=== PATIENT | female | born 1940 | race African-American/Black ===

== ENCOUNTER 2016-05-01 11:03 | Inpatient (IN) | payer OTHER, BC ==
[~2016-05-01] VITALS: Ht 172.7 cm; Wt 79.3 kg
--- NOTE | ~2016-05-01 | EKG ---
[address] [place] [address] ELECTROCARDIOGRAM REPORT Name: KARIN MARTINEZ Room #: 170-12 ADM IN M.R.#: [id number] Admission: 05/01/16 Attend Phys: Annamarie Hazel MD Discharge: Date of : 44 Report #: [id number] THIS REPORT FOR: //name// [facility] ED Test Date: 2016-05-01 Test Time: 11:38:42 Pat Name: KARIN MARTINEZ Department: Room: 170 Gender: F Manager Field: RUTH ANN : 1940 Requested By: Anu Menendez Order Number: [id number] MD: Stepan Quintanilla Measurements Intervals [place] Rate: 72 P: 31 NC: 270 QRS: -43 QRSD: 162 T: -33 QT: 395 QTc: 433 Interpretive Statements Sinus rhythm Prolonged NC interval Right bundle branch block Possible Inferior infarct, age indeterminate No previous ECG available for comparison Electronically Signed On 05-01-2016 13:28:07 OSTOMY RN by Stepan Quintanilla [email or web address] <ELECTRONICALLY SIGNED> By: Stepan Quintanilla MD, [facility] 05/01/16 1328 1138 113 Stepan Quintanilla MD, [facility] /EPI
--- NOTE | ~2016-05-01 | 2DMMODE ---
[facility] [place] [place] [address] 2 D/M-MODE ECHOCARDIOGRAM Name: KARIN MARTINEZ Room #: 433-I ADM IN ..#: [id number] Admission: 05/01/16 Attend Phys: Annamarie Hazel Discharge: Date of : 44 Date of Service: 05/02/16 0824 Report #: [id number] THIS REPORT FOR: //name// Transthoracic Echocardiography Ordering physician: Brooklyn Ortega Referring physician: Brooklyn Ortega Malathi Recreation Aide: Shannon Damico Indications/History: Effusion. Hx: COPD, Afib. BP: 101 / HR: 86bpm Height: 68in Weight: 188.6lb 44 Study data: M-mode, complete 2D, complete spectral Doppler, and color Doppler. Location: Bedside. Routine. Image quality was adequate. The study was technically limited due to poor patient compliance and restricted patient mobility due to trach. Not all measurements taken. 2D measurements Normal Normal LVID ED 38.2mm 36-57 IVS ED 9.8mm 6-11 LVID ES 20.9mm 23-40 LVPW ED 9.6mm 6-11 LA volume index 16-28 AoRoot diam ED 34.1mm 21-37 LVOT diameter 20mm 18-23 Findings: Left ventricle: The cavity size was normal. Wall thickness was normal. Systolic function was hyperdynamic. The estimated ejection fraction was in the range of 70% to 75%. Wall motion was normal. Moderate LVOT gradient, likely related to hyperdynamic LV function. Right ventricle: Appears mildly dilated with normal function. Right atrium: The atrium appears mildly dilated. Left atrium: The atrium was mildly dilated. Aortic valve: Poorly visualized. Mildly calcified leaflets. Doppler: There was no stenosis. Trivial regurgitation. Peak velocity: 183.4cm/s (S). Peak [facility] [address] [place] [place] [address] 2 D/M-MODE ECHOCARDIOGRAM Name: KARIN MARTINEZ Room #: 433-I ADM IN M.Jessica.#: [id number] Admission: 05/01/16 Attend Phys: Annamarie Hazel Discharge: Date of : 44 Date of Service: 05/02/16 0824 Report #: [id number] gradient: 13.5mm Hg (S). Mitral valve: Mildly calcified annulus. Mildly thickened, mildly calcified leaflets . Doppler: There was no evidence for stenosis. Mild regurgitation. Peak E-wave velocity: 82.1cm/s. Peak gradient: 2.7mm Hg (D). Peak A-wave velocity: 120.4cm/s. Tricuspid valve: Structurally normal valve. Doppler: There was no evidence for stenosis. Mild-moderate regurgitation. Regurgitant peak velocity: 241.2cm/s. Peak RV-RA gradient: 23mm Hg (S). Pulmonic valve: Poorly visualized. Doppler: There was no evidence for stenosis. No regurgitation. Peak gradient: 11mm Hg (S). Pericardium: There was no pericardial effusion. Pleura: There was a left pleural effusion. Aorta: Aortic root: The aortic root was normal in size. Pulmonary artery: Systolic pressure was estimated to be 28mm Hg. Diastolic function: Doppler parameters are consistent with abnormal left ventricular relaxation (grade 1 diastolic dysfunction). Systemic veins: Inferior vena cava: The vessel was normal in size; the respirophasic diameter changes were in the normal range (= 50%). Conclusions 1. Left ventricle: Systolic function was hyperdynamic. The estimated ejection fraction was in the range of 70% to 75%. Wall motion was normal. Moderate LVOT gradient, likely related to hyperdynamic LV function. Doppler parameters are consistent with abnormal left ventricular relaxation (grade 1 diastolic dysfunction). 2. Right atrium: The atrium appears mildly dilated. 3. Aortic valve: Mildly calcified leaflets. There was no stenosis. Trivial regurgitation. 4. Mitral valve: Mildly calcified annulus. Mildly thickened, mildly calcified leaflets . There was no evidence for stenosis. Mild regurgitation. 5. Pericardium, extracardiac: There was no pericardial effusion. [facility] [place] [address] 2 D/M-MODE ECHOCARDIOGRAM Name: MARTINEZKARIN Room #: 433-I [facility] IN ..#: [id number] Admission: 05/01/16 Attend Phys: Annamarie Hazel Discharge: Date of : 44 Date of Service: 05/02/16823 Report #: [id number] 6. Pulmonary arteries: Systolic pressure was estimated to be 28mm Hg. <ELECTRONICALLY SIGNED> By: Stepan Quintanilla MD, [facility] 05/02/16938 3 8 Stepan Quintanilla MD, [facility] /crystal
--- NOTE | ~2016-05-01 | HC ---
[facility] [place] [address] CONSULTATION Name: JUANKARIN Room #: 445-P ADM IN M.R.#: [id number] Admission: 05/01/16 Attend Phys: Kaushik King MD Discharge: Date of : 44 Report #: [id number] THIS REPORT FOR: //name// CC: Annamarie Villarreal DATE OF SERVICE: 05/01/2016 REASON FOR CONSULTATION: Respiratory failure. IMPRESSION: 1. Acute respiratory failure. 2. Infiltrate with effusion, healthcare-associated pneumonia. 3. End-stage renal disease. 4. Chronic obstructive pulmonary disease. 5. Dysphagia. 6. Thoracic aortic aneurysm repair. 7. Diabetes. 8. History of deep venous thrombosis and embolism. 9. Obstructive sleep apnea. 10. Kidney transplant. 11. Depression. 12. Atrial fibrillation. 13. Debilitation. PLAN: 1. We will check venous Doppler, upper and lower. We will do ultrasound, chest on left and a tap if needed. 2. Continue tube feed. 3. Antibiotics per ID. 4. There is a question of tuberculosis without definite exposure and we will leave this up to ID, sputum has been sent, I believe. HISTORY OF PRESENT ILLNESS: A 76-year old initially at [facility] for thoracic aortic aneurysm repair, hospitalized in [place], required trach there and PEG; was sent to a [facility] where taken care of by [facility] for further rehabilitation, however, has had weakness, cough and there was a question of TB on the chest x-ray. The patient was transported to dialysis clinic without appropriate clothing per daughter and shortly after started developing a cough. The patient is somnolent today and has been off ventilators since I believe [facility] PRIOR MEDICATIONS: Included amiodarone, aspirin, digoxin, Marinol, citalopram, famotidine, mycophenolate, tacrolimus, Aranesp and DuoNeb. FAMILY HISTORY: Noncontributory. [facility] [address] [place] [address] CONSULTATION Name: KARIN MARTINEZ Room #: [facility] IN M.R.#: [id number] Admission: 05/01/16 Attend Phys: Kaushik King MD Discharge: Date of : 44 Report #: [id number] SOCIAL HISTORY: Positive tobacco in past. Negative significant ETOH. REVIEW OF SYSTEMS: As above. PHYSICAL EXAMINATION: VITAL SIGNS: Temperature not charted, pulse 69, respirations 12 and BP 128/53. EYES: Negative icterus. NECK: Negative JVD. LUNGS: Showed decreased breath sounds. HEART: Irregular. ABDOMEN: Bowel sounds present. EXTREMITIES: Showed positive edema. LABORATORY DATA: Lactate 0.9. BUN 32, creatinine 3.8 and potassium 5.2. White count 8.4, hemoglobin 10.7, platelets 267 and bands 2. RADIOLOGICAL DATA: Chest x-ray shows left infiltrate/effusion. We will follow closely with you. <ELECTRONICALLY SIGNED> By: Brooklyn Ortega MD 05/15/16 2234 [id number] Brooklyn Ortega MD /nt
--- NOTE | ~2016-05-01 | HC ---
[facility] [place] [address] CONSULTATION Name: KARIN MARTINEZ Room #: 445-P [facility] IN M.R.#: [id number] Admission: 05/01/16 Attend Phys: Kaushik King MD Discharge: Date of : 44 Report #: [id number] THIS REPORT FOR: //name// CC: Annamarie Villarreal DATE OF SERVICE: 05/06/2016 CHIEF COMPLAINT: Decubitus ulcers HISTORY OF PRESENT ILLNESS: This is a 76-year-old black female who presented to the emergency department to rule out tuberculosis. Upon admission to the hospital, the patient was found to have decubitus ulcers stage 2 on her bilateral buttocks and right thigh. I have been asked to assist in the care of the patient while she is here in the hospital. The patient herself is unable to give me any history. There is no family members here at this time. PAST MEDICAL HISTORY: According to the record, history of pneumonia, end-stage renal disease, COPD, type 2 diabetes, atrial fibrillation, hypertension, colitis and hemodialysis. CURRENT MEDICATIONS: Multiple, I reviewed the patient's medication list. DRUG ALLERGIES: None. SOCIAL HISTORY: The patient lives in a care facility. FAMILY HISTORY AND REVIEW OF SYSTEMS: Unobtainable because of the patient's medical condition. PHYSICAL EXAMINATION: VITAL SIGNS: Stable. The patient is afebrile. GENERAL: This is an alert and oriented x1 person, but not place or time, elderly black female who is in no acute distress. HEENT: Normocephalic, atraumatic. Mucous membranes are slightly dry. Pupils are round. Sclerae white. NECK: Supple, nontender without JVD. BACK: Nontender. LUNGS: Clear. HEART: Irregularly irregular with 2/6 systolic ejection murmur. ABDOMEN: Soft, otherwise nontender. EXTREMITIES: The patient moves all extremities without difficulty. There are no ulcerations noted to heels. There are no ulcerations noted to the foot or toes. Evaluation of the gluteal region reveals 2 superficial stage 2 decubitus ulcers in the superior aspect of each gluteal region as well as an ulceration down her right posterior thigh, which is also stage [address] superficial [address] [address] CONSULTATION Name: KARIN MARTINEZ Room #: 445-[facility] IN [facility].#: [id number] Admission: 05/01/16 Attend Phys: Kaushik King MD Discharge: Date of : 44 Report #: [id number]. NEUROLOGIC: Cranial nerves 2-12 grossly intact. Motor and sensory grossly intact. LABORATORY VALUES: White count 10.2, hemoglobin 9.4. Albumin is low at 2.4. IMPRESSION: 1. Bilateral stage 2 decubitus ulcers to supragluteal region present on admission. 2. Right posterior thigh gluteal ulcer stage 2, present on admission. 3. Diabetes mellitus. 4. Severe protein-calorie malnutrition with albumin of 2.4. PLAN: At this time, the patient is having a significant amount of loose stools, we have talked about ; however, the family is very much against this. We will try to keep her as clean as possible, we will use Silvadene cream for the sites, she does not appear these actually caused her much pain, we will have this done twice daily and with every stool. We will give the patient a low air loss mattress and make sure she turned every 2 hours further breakdown. We will also make sure we maximize the patient's protein supplementation per renal diet to aid in the healing. <ELECTRONICALLY SIGNED> By: Jarred Britt MD 05/17/16 0826 1355 1423 Jarred Britt MD /nt
--- NOTE | ~2016-05-01 | HC ---
[facility] [place] [place] [address] CONSULTATION Name: JUANKARIN Room #: 433-I ADM IN M.R.#: [id number] Admission: 05/01/16 Attend Phys: Annamarie Hazel MD Discharge: Date of : 44 Report #: [id number] THIS REPORT FOR: //name// CC: Annamarie Villarreal REASON FOR CONSULTATION: I was asked to evaluate concerning pneumonia and possible tuberculosis. HISTORY OF PRESENT ILLNESS: The patient is a 76-year-old renal transplant patient, who has had multiple issues following an aortic aneurysm repair. She has been institutionalized following her surgery that was performed in December in [facility]. She failed to wean from the ventilator and has required a tracheostomy and a PEG tube. She had acute renal failure and now is on dialysis via a right chest dialysis catheter. She has been in LTACs and back to [facility]. She remains on 2-drug immunosuppression with tacrolimus and Myfortic. Creatinine has stabilized around 3 range. She acutely presents with increased cough and bloody sputum. No documented fever. More short of breath. On presentation, she was afebrile and hemodynamically stable. She remains on a T-piece at 35%. The patient denies any chest pain. No nausea, vomiting or diarrhea. She denies any previous HIV history or tuberculosis exposure. I do not know her previous workup prior to her transplant, but would have expected tuberculosis screening at that time. She has been residing at [facility]. PAST MEDICAL HISTORY: Diabetes, hypertension, renal failure, ascending aortic aneurysm repair, DVT, atrial fibrillation and diverticulitis with a perforation status post colon surgery. ALLERGIES: None. MEDICATIONS: As noted on her MAR, which were reviewed including the Myfortic and tacrolimus. Now on vancomycin and Zosyn. She did receive a dose of Levaquin yesterday. FAMILY HISTORY: Noncontributory with no report of tuberculosis. SOCIAL HISTORY: No significant alcohol intake. She is a past smoker. REVIEW OF SYSTEMS: As noted above. PHYSICAL EXAMINATION: VITAL SIGNS: Afebrile, hemodynamically stable, alert and cooperative and pleasant, in no acute distress. She is on 35% T-piece. LUNGS: Coarse in the left posterior chest, mostly in the base. HEART: Regular. [facility] [address] [place] [address] CONSULTATION Name: KARIN MARTINEZ Room #: 433-I [facility] IN M.R.#: [id number] Admission: 05/01/16 Attend Phys: Annamarie Hazel MD Discharge: Date of : 44 Report #: [id number] ABDOMEN: Soft. PEG site was unremarkable. No masses or hepatosplenomegaly. Right chest dialysis catheter site was unremarkable. Left chest peripheral venous access unremarkable. EXTREMITIES: Unremarkable. LABORATORY STUDIES: Sodium 137, potassium 4.5, bicarbonate 27, creatinine 2.5, AST 10 and alkaline phosphatase 91. Albumin at 2.2. BNP 5180. INR 1.9. Hemoglobin 9.6, white count 6.2, platelet count 243,000, 70% neutrophils and 3% bands. MRSA screen pending. Procalcitonin level 0.6. ABG on FiO2 of 35%, pO2 of 82, pCO2 of 49 and pH 7.39. Sputum for AFB pending. Bacterial culture no growth in 24 hours. Blood cultures negative at 24 hours. Chest x-ray: Cardiomegaly with left sided effusion and atelectasis. Did not see any evidence of upper lobe disease. Previous chest x-ray on 02/23/2009 showed no acute process. IMPRESSION AND PLAN: A 76-year-old renal transplant patient with now acute renal failure on dialysis with respiratory failure and tracheostomy, all following an ascending aortic aneurysm repair performed at [facility] in February. Question was raised about tuberculosis. I highly doubt this considering her history and previous chest x-rays. For completeness, we will perform a PPD skin test. We will also screen sputum cultures for AFB. Await thoracentesis left chest, which I suspect is postoperative accumulation. Continue antibiotic coverage for nosocomial organisms pending culture results. <ELECTRONICALLY SIGNED> By: Ryan Basilio MD 05/03/16 0833 1215 1736 Ryan Basilio MD /nt
--- NOTE | ~2016-05-01 | EKG ---
[address] [address] ELECTROCARDIOGRAM REPORT Name: KARIN MARTINEZ Room #: 245-P ADM IN M.R.#: [id number] Admission: 05/01/16 Attend Phys: Wellington Calderón MD Discharge: Date of : 44 Report #: [id number] THIS REPORT FOR: //name// [facility] Test Date: 2016-05-10 Test Time: 18:00:33 Pat Name: KARIN MARTINEZ Department: Room: [facility] Gender: F Manager Business Information: : 1940 Requested By: Kaushik King Order Number: [id number] MD: Domenic Adam Measurements Intervals [place] Rate: 88 P: [place]: QRS: -85 QRSD: 158 T: 2 QT: 393 QTc: 476 Interpretive Statements Sinus rhythm Right bundle branch block Electronically Signed On 05-11-2016 8:05:14 COMMUNICATIONS CONTROLLER by Domenic Adam [email or web address] <ELECTRONICALLY SIGNED> By: Domenic Adam MD 05/11/16 0805 1800 MD GABRIEL Villa
--- NOTE | ~2016-05-01 | HC ---
[facility] [place] [address] CONSULTATION Name: JUANKARIN Room #: 433-I ADM IN M.R.#: [id number] Admission: 05/01/16 Attend Phys: Annamarie Hazel MD Discharge: Date of : 44 Report #: [id number] THIS REPORT FOR: //name// CC: [facility] DATE OF SERVICE: 05/01/2016 REASON FOR CONSULTATION: Renal failure requiring dialysis. HISTORY OF PRESENT ILLNESS: This is a 76-year-old female well known to our practice. She has had a very complex recent medical history. Most recently, this includes transferring to a local care center after having been in [facility]. She has just been at that Care Center now for about 4 days. She apparently was having some coughing and having some sputum which was blood-tinged, so she was sent to the Emergency Room. The patient actually is very awake and alert. She says she has been coughing, she is not having any chest pain. She is unaware of fevers or chills. She has a tracheostomy in place and she has been oxygenating fairly well. She does not know of previous hemoptysis. From a kidney standpoint, the patient had a long history of diabetic nephropathy. She ended up on dialysis and that was close to 10 years ago. She was on a peritoneal dialysis for some time and then she was on hemodialysis. In the year 2009, she ended up getting a kidney transplant and that kidney worked well for a very long period of time. In the fall of this year and it was either late in December or early January, she ended up presenting to [facility] and had an enlarging aortic aneurysm involving the ascending aorta, in the arch. She underwent surgery in [place] and obviously became very critically ill with that. She ended up chronically on the ventilator. She ended up with a tracheostomy as well as a PEG tube. During that time, the kidney continued to function fairly well. She was kept on her usual immunosuppressive medications. From there, she was transferred to an LTAC. Apparently, while there, there was a several day time course of not getting her immunosuppressive medication. She ended up developing acute kidney injury. From there, she was transferred apparently to [facility] and later to [facility] where she was cared for by part of our group. She was put back on her immunosuppressive medications, but the kidney has been very slow to regain function. Hence, she was put back on hemodialysis. She has now been dialyzing for the past couple of weeks via a tunneled right internal jugular vein catheter. She last dialyzed two days ago on 04/29/[address] [facility] state line dialysis unit associated with Suha Hyde, that was her one and only dialysis there. It went without problems. She is due for dialysis today. She has been put back on her immunosuppressive medications including tacrolimus and Myfortic. Her creatinine level has been running in the mid 3 range. She is [facility] [address] [place] [address] CONSULTATION Name: KARIN MARTINEZ Room #: 433-I ADM IN M.R.#: [id number] Admission: 05/01/16 Attend Phys: Annamarie Hazel MD Discharge: Date of : 44 Report #: [id number] making some urine, but has not shown further improvement in function. ADDITIONAL PAST MEDICAL HISTORY: Longstanding diabetes and hypertension. She has had the renal failure as noted above. She had the repair of the ascending aortic aneurysm as noted above. She also ended up during those lengthy hospitalizations with DVT and the left arm has been chronically anticoagulated since that time. She has intermittent atrial fibrillation, she had previous diverticulitis perforation and colon surgery. MEDICATIONS: On admission include: Tacrolimus 2.5 mg b.i.d, Myfortic 360 mg b.i.d; which are her two immunosuppressive medications. Amiodarone 200 mg daily, aspirin 81 mg daily, digoxin 0.125 mg every other day, dronabinol 2.5 mg b.i.d., Lexapro 10 mg daily, famotidine 20 mg daily, Aranesp 40 mcg every week, Humalog and multiple p.r.n. medications. ALLERGIES: No known medical allergies. FAMILY HISTORY: Noncontributory. SOCIAL HISTORY: She is accompanied by her daughter at this time, who still provides her with a lot of help. Again, she has been living in a local care center after being in multiple different recent hospitalizations. REVIEW OF SYSTEMS: Daughter says that the patient has actually been eating more; when she does eat, she is swallowing moderately well. When she does not, she gets a bolus of feedings into her PEG tube. Most of her medications she is able to swallow. She was having swallowing issues previously, but those have improved. She denies nausea or vomiting, intermittent recent diarrhea, although it seems to be better. Again, she is passing some urine, is occasionally incontinent. She has had the cough and sputum production, mild bloody sputum. She has the tracheostomy in place. She denies current pain. She has been dialyzing through the right internal jugular vein catheter dialysis while the other day she had a previous right upper arm fistula, which is now thrombosed. She denies other pain. No knowledge of fevers, chills or sweats. She has mild decrease in hearing acuity, no recent visual changes. PHYSICAL EXAMINATION: GENERAL: Elderly appearing female seen in the Emergency Room. She is awake and responsive, unable to communicate with both her daughter and myself. VITAL SIGNS: Blood pressure 132/57, heart rate 71, respiratory 9, oxygen saturation 100% on supplemental oxygen per trache shield. HEENT: Shows pupils are equal and reactive. Sclerae are nonicteric. Oral mucosa is moist. Tracheostomy is in place, no current drainage of blood. CHEST: Shows somewhat coarse breath sounds bilaterally, somewhat shallow. HEART: Has a regular rate and rhythm. ABDOMEN: Has active bowel sounds, it is soft, nontender at this time; generally [facility] [address] [place] [address] CONSULTATION Name: KARIN MARTINEZ Room #: 433-I ADM IN ..#: [id number] Admission: 05/01/16 Attend Phys: Annamarie Hazel MD Discharge: Date of : 44 Report #: [id number] nontender. EXTREMITIES: Show an old thrombosed fistula in her right arm. She has just trace peripheral edema. LABORATORY DATA: Sodium 132, potassium 5.2, chloride 98, bicarbonate 27, BUN 32, creatinine 3.8, glucose 110, calcium 9.2, white count 8.4, hemoglobin 10.7, hematocrit 34.5, platelets 267,000, normal differential on the white count. I reviewed her chest x-ray with some haziness, possible lower lobe infiltrates. ASSESSMENT: 1. End-stage renal disease. She is due for dialysis today. Potassium is mildly up. Volume is fairly good, we will dialyze her later on a potassium dialysate. I put in orders and talked to the dialysis nurse concerning that. 2. Kidney transplant. She remains on her immunosuppressive medications. We are still hoping we will see some recovery of her kidney, but this has been very slow to come around. Unfortunately, with her anticoagulation, we have not been able to get a kidney biopsy to see how much recoverable function there is and we will keep her on her Myfortic and tacrolimus at this time. 3. Recent repair of aortic aneurysm ascending in arch. 4. Chronic tracheostomy. Recent report of sputum with blood and infiltrate. I do not know where the tuberculosis concern came from. She has nothing to suggest that. She has been put on broad spectrum antibiotics. The quickest way to determine this will be to get the blood test looking for tuberculosis. 5. Longstanding diabetes. 6. Chronic swallowing issues. She has actually been doing better. We will keep her on by mouth if able. 7. Anemia of end-stage renal disease, chronically on erythropoietin supplementation. PLAN: 1. Dialysis later today. 2. Continue immunosuppressives. 3. We will look for further evidence of any recovery of renal function. 4. I have discussed this with Dr. Susy Arias of my group who is her usual trade embalmer. <ELECTRONICALLY SIGNED> By: Ryland Marie MD 05/02/16 0819 [id number] Ryland Marie MD /nt
--- NOTE | ~2016-05-01 | EKG ---
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1940 Requested By: Kaushik King Order Number: [id number] MD: Measurements Intervals [place] Rate: 88 P: ME: QRS: -85 QRSD: 158 T: 2 QT: 393 QTc: 476 Interpretive Statements Accelerated junctional rhythm Right bundle branch block Inferior infarct, old Compared to ECG 05/01/2016 11:38:42 Accelerated junctional rhythm now present Sinus rhythm no longer present First degree AV block no longer present Myocardial infarct finding still present [email or web address] By: [address] [facility] [place] [facility] [place] [facility] Ep[facility], /EPI
--- NOTE | ~2016-05-01 | P ---
[facility] [place] [address] PROCEDURE REPORT Name: KARIN MARTINEZ Room #: 445-P [facility] IN M.R.#: [id number] Admission: 05/01/16 Attend Phys: Kaushik King MD Discharge: 05/17/16 Date of : 44 Report #: [id number] THIS REPORT FOR: //name// CC: Henrik King TYPE OF REPORT: Bronchoscopy. INDICATION: Two episodes of arrest with [place] valve on secondary to mucous plugging. Post procedure, no endobronchial lesions seen. No hemoptysis seen. No significant granulation tissue seen. COMPLICATIONS: None. MEDICATIONS: Lidocaine and aerosol treatment. No sedation given. COMPLICATIONS: None. DESCRIPTION OF PROCEDURE: The patient was informed of risks and benefits as well as daughter. Bronchoscope was passed after lidocaine aerosol given. End of trach tube did not show any obstruction. Main andrew was sharp. No bleeding noted. Washes were done, minimal mucus seen. The patient tolerated well with some cough. Discussed with the patient and daughter afterwards. Await cultures. <ELECTRONICALLY SIGNED> By: Brooklyn Ortega MD 06/02/16 2225 [id number] Brooklyn Ortega MD /nt
[2016-05-01 11:05] VITALS: BP 102/55
[2016-05-01] MEDS ORDERED: TYLENOL325 MG PO (11:44)
[2016-05-01] MEDS ORDERED: PACERONE 200 M200 M1 PO (11:44)
[2016-05-01] MEDS ORDERED: ASPIR 8181 MG PO (11:45)
[2016-05-01] MEDS ORDERED: LANOXIN 0.120.125 M1 PO (11:46)
[2016-05-01 11:58] LABS: HEMATOCRIT 34.5 % (37.0-47.0); HEMOGLOBIN 10.7 gm/dL (12.0-15.0); MCH 27.6 pg (26.0-34.0); MCV 89.1 fL (80.0-100.0); RBC 3.87 mil/uL (4.20-5.00); RDW 18.5 % (10.5-14.5); WBC 8.4 thou/uL (4.0-11.0)
[2016-05-01 11:59] LABS: MANUAL DIFF YES
[2016-05-01 12:16] LABS: CALCIUM 9.2 mg/dL (8.5-10.1); CREATININE 3.8 mg/dL (0.6-1.3); POTASSIUM 5.2 mmol/L (3.5-5.1)
[2016-05-01 12:20] LABS: ABSOLUTE NEUTROPHILS 5.1 thou/uL (1.4-8.2); PLATELET COUNT 267 thou/uL (150-400); PLATELET ESTIMATE NORMAL; TOTAL CELL COUNT 100
[2016-05-01] MEDS ORDERED: MARINOL 2.5 MG2.5 M1 PO (12:22)
[2016-05-01] MEDS ORDERED: LEXAPRO 10 MG T10 M1 PO (12:23)
[2016-05-01] MEDS ORDERED: PEPCID20 MG PO (12:23)
[2016-05-01] MEDS ORDERED: HYDROCODONE-AP1 EAC6 PO (12:24)
[2016-05-01] MEDS ORDERED: MYCOPHENOLIC A180 MG PO (12:24)
[2016-05-01] MEDS ORDERED: TACROLIMUS0.5 MG PO (12:25)
[2016-05-01] MEDS ORDERED: ZOFRAN ODT4 MG PO (12:25)
[2016-05-01] MEDS ORDERED: TACROLIMUS1 MG PO (12:27)
[2016-05-01] MEDS ORDERED: ARANESP INJECTION (12:28)
[2016-05-01] MEDS ORDERED: DIPHENOXYLATE/A1 TA1 PO (12:30)
[2016-05-01] MEDS ORDERED: GLUCAGEN1 MG IM (12:31)
[2016-05-01] MEDS ORDERED: GLUCERNA237 M1 PO (12:32)
[2016-05-01] MEDS ORDERED: HUMALOG100 UNIT/1 SUBQ (12:33)
[2016-05-01] MEDS ORDERED: HYDROCORTISONE30 G9 TOP (12:34)
[2016-05-01] MEDS ORDERED: DUONEB 2.5-0.5 M3 ML INH (12:35)
[2016-05-01] MEDS ORDERED: SILVADENE20 GM TP (12:35)
[2016-05-01] MEDS ORDERED: METAMUCIL PAC1 UDPKT PO (12:36)
[2016-05-01 15:54] VITALS: BP 128/53
[2016-05-01 19:46] VITALS: BP 131/41
[2016-05-01 23:30] VITALS: BP 101/44
[2016-05-02 06:57] LABS: ABG COMMENT 35% TRACH MASK; ABG SAMPLE TYPE ARTERIAL; BE(vivo) 3.3 mmol/L (-2 to +3); HCO3 28.9 mmol/L (22.0-26.0); LACTATE 0.72 mmol/L (0.5-2.0); O2(CT) 14.2 mL/dL (15.0-23.0); O2Hb 94.5 % (92.0-98.0); PCO2 49.1 mmHg (35.0-45.0); PO2 82.7 mmHg (80.0-100.0); pH 7.388 (7.360-7.450); sO2 95.9 % (92.0-98.0); tCO2 30.4 mmol/L (24.0-30.0)
[2016-05-02 08:00] VITALS: BP 139/97
[2016-05-02 09:51] LABS: HEMATOCRIT 30.3 % (37.0-47.0); HEMOGLOBIN 9.6 gm/dL (12.0-15.0); MCH 27.9 pg (26.0-34.0); MCHC 31.6 % (28.0-37.0); MCV 88.3 fL (80.0-100.0); PLATELET COUNT 243 thou/uL (150-400); RBC 3.44 mil/uL (4.20-5.00); RDW 18.7 % (10.5-14.5); WBC 6.2 thou/uL (4.0-11.0)
[2016-05-02 09:56] LABS: MANUAL DIFF YES
[2016-05-02 10:04] LABS: APTT 37.7 Seconds (24.5-32.8); CALCIUM 8.2 mg/dL (8.5-10.1); INR 1.9; POTASSIUM 4.5 mmol/L (3.5-5.1); PROTIME 19.7 Seconds (9.3-11.4)
[2016-05-02 10:08] LABS: ALBUMIN 2.2 g/dL (3.4-5.0); MAGNESIUM 1.7 mg/dL (1.8-2.4); TOTAL BILIRUBIN 0.4 mg/dL (<0.1-1.0); TOTAL PROTEIN 5.2 g/dL (6.4-8.2)
[2016-05-02 10:14] LABS: CREATININE 2.5 mg/dL (0.6-1.3)
[2016-05-02 10:46] LABS: ABSOLUTE NEUTROPHILS 4.5 thou/uL (1.4-8.2); PLATELET ESTIMATE NORMAL; TOTAL CELL COUNT 100
[2016-05-02 10:47] LABS: ANISOCYTOSIS 2+
[2016-05-02 12:00] VITALS: BP 139/57
[2016-05-02 16:00] VITALS: BP 136/69
[2016-05-02 19:52] VITALS: BP 146/82
[2016-05-03 04:30] VITALS: BP 109/52
[2016-05-03 07:34] VITALS: BP 111/42
[2016-05-03 08:12] LABS: ALBUMIN 2.1 g/dL (3.4-5.0); CALCIUM 8.5 mg/dL (8.5-10.1); CREATININE 3.4 mg/dL (0.6-1.3); INR 1.7; PHOSPHORUS 3.3 mg/dL (2.5-4.9); POTASSIUM 4.2 mmol/L (3.5-5.1)
[2016-05-03 08:15] LABS: PROTIME 18.1 Seconds (9.3-11.4)
[2016-05-03 11:45] VITALS: BP 121/50
[2016-05-03 16:09] VITALS: BP 123/60
[2016-05-03 19:44] VITALS: BP 127/61
[2016-05-04 04:10] VITALS: BP 95/56
[2016-05-04 05:17] LABS: HEMATOCRIT 31.5 % (37.0-47.0); HEMOGLOBIN 9.7 gm/dL (12.0-15.0); MCH 27.7 pg (26.0-34.0); MCHC 30.8 % (28.0-37.0); MCV 90.1 fL (80.0-100.0); PLATELET COUNT 246 thou/uL (150-400); RDW 18.3 % (10.5-14.5); WBC 8.6 thou/uL (4.0-11.0)
[2016-05-04 05:26] LABS: MANUAL DIFF YES
[2016-05-04 05:41] LABS: CALCIUM 8.8 mg/dL (8.5-10.1); POTASSIUM 4.1 mmol/L (3.5-5.1)
[2016-05-04 05:48] LABS: CREATININE 2.3 mg/dL (0.6-1.3)
[2016-05-04 07:53] VITALS: BP 101/58
[2016-05-04 08:16] LABS: APTT 29.1 Seconds (24.5-32.8); INR 1.2; PROTIME 12.1 Seconds (9.3-11.4)
[2016-05-04 08:25] LABS: ABSOLUTE NEUTROPHILS 5.5 thou/uL (1.4-8.2); ANISOCYTOSIS 2+; MACROCYTES 2+; POIKILOCYTOSIS 1+; TOTAL CELL COUNT 100
[2016-05-04 08:26] LABS: MICROCYTES 1+
[2016-05-04 12:00] VITALS: BP 134/56
[2016-05-04 16:00] VITALS: BP 155/81
[2016-05-04 21:18] VITALS: BP 127/63
[2016-05-05 05:43] VITALS: BP 113/59
[2016-05-05 06:49] LABS: ABSOLUTE NEUTROPHILS 4.8 thou/uL (1.4-8.2); BASOPHILS 0.4 % (0.0-2.0); EOSINOPHILS 3.6 % (0.0-3.0); HEMATOCRIT 31.1 % (37.0-47.0); HEMOGLOBIN 9.5 gm/dL (12.0-15.0); LYMPHOCYTES 17.4 % (24.0-44.0); MCH 27.6 pg (26.0-34.0); MCHC 30.5 % (28.0-37.0); MCV 90.3 fL (80.0-100.0); MONOCYTES 11.8 % (1.0-8.0); PLATELET COUNT 234 thou/uL (150-400); POLYS 66.8 % (36.0-66.0); RBC 3.45 mil/uL (4.20-5.00); RDW 18.9 % (10.5-14.5); WBC 7.2 thou/uL (4.0-11.0)
[2016-05-05 06:54] LABS: MANUAL DIFF NO
[2016-05-05 07:00] LABS: CALCIUM 8.8 mg/dL (8.5-10.1); CREATININE 3.1 mg/dL (0.6-1.3); POTASSIUM 3.5 mmol/L (3.5-5.1)
[2016-05-05 08:00] VITALS: BP 124/62
[2016-05-05 12:00] VITALS: BP 112/64
[2016-05-05 17:28] VITALS: BP 112/49
[2016-05-05 19:26] VITALS: BP 105/46
[2016-05-06 04:29] VITALS: BP 104/80
[2016-05-06 06:37] LABS: ABSOLUTE NEUTROPHILS 7.3 thou/uL (1.4-8.2); BASOPHILS 0.3 % (0.0-2.0); EOSINOPHILS 2.1 % (0.0-3.0); HEMATOCRIT 30.7 % (37.0-47.0); HEMOGLOBIN 9.4 gm/dL (12.0-15.0); LYMPHOCYTES 15.5 % (24.0-44.0); MCH 27.6 pg (26.0-34.0); MCHC 30.4 % (28.0-37.0); MCV 90.6 fL (80.0-100.0); MONOCYTES 10.7 % (1.0-8.0); PLATELET COUNT 229 thou/uL (150-400); POLYS 71.4 % (36.0-66.0); RBC 3.39 mil/uL (4.20-5.00); RDW 18.3 % (10.5-14.5); WBC 10.2 thou/uL (4.0-11.0)
[2016-05-06 06:41] LABS: MANUAL DIFF NO
[2016-05-06 06:50] LABS: CALCIUM 9.2 mg/dL (8.5-10.1); CREATININE 3.6 mg/dL (0.6-1.3); POTASSIUM 3.9 mmol/L (3.5-5.1)
[2016-05-06 07:33] VITALS: BP 96/43
[2016-05-06 08:00] VITALS: BP 96/43
[2016-05-06 10:56] VITALS: BP 92/41
[2016-05-06 21:49] VITALS: BP 94/40
[2016-05-07 04:10] VITALS: BP 87/40
[2016-05-07 05:59] LABS: HEMATOCRIT 26.1 % (37.0-47.0); HEMOGLOBIN 8.3 gm/dL (12.0-15.0); MCH 27.9 pg (26.0-34.0); MCHC 31.6 % (28.0-37.0); MCV 88.2 fL (80.0-100.0); PLATELET COUNT 196 thou/uL (150-400); RBC 2.96 mil/uL (4.20-5.00); RDW 17.8 % (10.5-14.5); WBC 7.4 thou/uL (4.0-11.0)
[2016-05-07 06:13] LABS: MANUAL DIFF YES
[2016-05-07 06:43] LABS: ALBUMIN 2.4 g/dL (3.4-5.0); CALCIUM 8.4 mg/dL (8.5-10.1); CREATININE 2.5 mg/dL (0.6-1.3); PHOSPHORUS 1.1 mg/dL (2.5-4.9); POTASSIUM 3.9 mmol/L (3.5-5.1)
[2016-05-07 08:34] LABS: NIL (NEGATIVE) CONTROL SPOT CT 0; PANEL A SPOT CT 0; PANEL B SPOT CT 0; POSITIVE CONTROL SPOT COUNT > 20; T-SPOT.TB Negative
[2016-05-07 08:57] LABS: ABSOLUTE NEUTROPHILS 4.6 thou/uL (1.4-8.2); PLATELET ESTIMATE NORMAL; TOTAL CELL COUNT 100
[2016-05-07 12:00] VITALS: BP 117/48
[2016-05-07 16:00] VITALS: BP 104/38
[2016-05-07 20:50] VITALS: BP 113/37
[2016-05-08 05:15] VITALS: BP 130/53
[2016-05-08 05:28] LABS: HEMATOCRIT 27.1 % (37.0-47.0); HEMOGLOBIN 8.6 gm/dL (12.0-15.0); MCH 27.9 pg (26.0-34.0); MCHC 31.7 % (28.0-37.0); MCV 88.1 fL (80.0-100.0); PLATELET COUNT 206 thou/uL (150-400); RBC 3.08 mil/uL (4.20-5.00); RDW 18.1 % (10.5-14.5); WBC 7.5 thou/uL (4.0-11.0)
[2016-05-08 05:47] LABS: MANUAL DIFF YES
[2016-05-08 06:07] LABS: ALBUMIN 2.7 g/dL (3.4-5.0); CALCIUM 8.4 mg/dL (8.5-10.1); CREATININE 2.4 mg/dL (0.6-1.3); POTASSIUM 4.1 mmol/L (3.5-5.1)
[2016-05-08 07:26] LABS: ABSOLUTE NEUTROPHILS 4.8 thou/uL (1.4-8.2); ANISOCYTOSIS 1+; PLATELET ESTIMATE NORMAL; TOTAL CELL COUNT 100
[2016-05-08 07:45] VITALS: BP 99/41
[2016-05-08 11:52] VITALS: BP 153/98
[2016-05-08 17:47] VITALS: BP 133/59
[2016-05-08 20:56] VITALS: BP 127/60
[2016-05-09 03:38] VITALS: BP 128/59
[2016-05-09 06:47] LABS: ALBUMIN 2.4 g/dL (3.4-5.0); CALCIUM 8.7 mg/dL (8.5-10.1); CREATININE 2.9 mg/dL (0.6-1.3); PHOSPHORUS 2.7 mg/dL (2.5-4.9); POTASSIUM 4.4 mmol/L (3.5-5.1)
[2016-05-09 08:00] VITALS: BP 100/85
[2016-05-09 12:00] VITALS: BP 98/44
[2016-05-09 16:00] VITALS: BP 111/52
[2016-05-09 20:16] VITALS: BP 91/45
[2016-05-10] VITALS (16 sets, daily range): BP systolic 78–139; BP diastolic 36–80
[2016-05-10 18:18] LABS: HEMATOCRIT 28.4 % (37.0-47.0); HEMOGLOBIN 8.7 gm/dL (12.0-15.0); MCH 27.4 pg (26.0-34.0); MCHC 30.5 % (28.0-37.0); MCV 89.9 fL (80.0-100.0); RBC 3.16 mil/uL (4.20-5.00); RDW 17.8 % (10.5-14.5); WBC 17.7 thou/uL (4.0-11.0)
[2016-05-10 18:20] LABS: ABG SAMPLE TYPE ARTERIAL; BE(vivo) 0.2 mmol/L (-2 to +3); HCO3 25.4 mmol/L (22.0-26.0); LACTATE 3.21 mmol/L (0.5-2.0); O2(CT) 11.4 mL/dL (15.0-23.0); O2Hb 85.1 % (92.0-98.0); PCO2 43.7 mmHg (35.0-45.0); pH 7.383 (7.360-7.450); sO2 86.5 % (92.0-98.0); tCO2 26.8 mmol/L (24.0-30.0)
[2016-05-10 18:22] LABS: ABG COMMENT POST CODE BLUE; PO2 52.5 mmHg (80.0-100.0); STICK SITE L.FEMORAL
[2016-05-10 18:29] LABS: CALCIUM 8.1 mg/dL (8.5-10.1); POTASSIUM 4.2 mmol/L (3.5-5.1)
[2016-05-10 18:37] LABS: ALBUMIN 2.3 g/dL (3.4-5.0); MAGNESIUM 1.7 mg/dL (1.8-2.4); TOTAL BILIRUBIN 0.3 mg/dL (<0.1-1.0); TOTAL PROTEIN 5.6 g/dL (6.4-8.2); TROPONIN-I 0.09 ng/mL (<0.04-0.07)
[2016-05-10 18:40] LABS: CREATININE 1.4 mg/dL (0.6-1.3)
[2016-05-11] VITALS (14 sets, daily range): BP systolic 91–117; BP diastolic 47–69
[2016-05-11 05:38] LABS: ABG SAMPLE TYPE ARTERIAL; BE(vivo) 4.9 mmol/L (-2 to +3); HCO3 30.4 mmol/L (22.0-26.0); O2(CT) 12.8 mL/dL (15.0-23.0); O2Hb 98.5 % (92.0-98.0); PCO2 49.9 mmHg (35.0-45.0); PO2 232.9 mmHg (80.0-100.0); STICK SITE R.RADIAL; pH 7.402 (7.360-7.450); sO2 99.5 % (92.0-98.0); tCO2 31.9 mmol/L (24.0-30.0)
[2016-05-11 07:18] LABS: HEMATOCRIT 26.2 % (37.0-47.0); HEMOGLOBIN 8.1 gm/dL (12.0-15.0); MCH 27.3 pg (26.0-34.0); MCHC 30.9 % (28.0-37.0); MCV 88.5 fL (80.0-100.0); PLATELET COUNT 219 thou/uL (150-400); RBC 2.96 mil/uL (4.20-5.00); RDW 18.3 % (10.5-14.5); WBC 6.9 thou/uL (4.0-11.0)
[2016-05-11 07:22] LABS: MANUAL DIFF YES
[2016-05-11 08:00] LABS: ABSOLUTE NEUTROPHILS 5.5 thou/uL (1.4-8.2); ANISOCYTOSIS 3+; POIKILOCYTOSIS SLIGHT; TOTAL CELL COUNT 100
[2016-05-11 08:01] LABS: POLYCHROMASIA OCCASIONAL
[2016-05-11 08:19] LABS: CALCIUM 8.7 mg/dL (8.5-10.1); CREATININE 1.9 mg/dL (0.6-1.3); MAGNESIUM 1.8 mg/dL (1.8-2.4); TROPONIN-I 0.08 ng/mL (<0.04-0.07)
[2016-05-12] VITALS (31 sets, daily range): BP systolic 64–122; BP diastolic 32–104
[2016-05-12 04:27] LABS: HEMATOCRIT 25.5 % (37.0-47.0); HEMOGLOBIN 7.9 gm/dL (12.0-15.0); MCHC 30.9 % (28.0-37.0); MCV 90.7 fL (80.0-100.0); PLATELET COUNT 174 thou/uL (150-400); RBC 2.81 mil/uL (4.20-5.00); WBC 9.5 thou/uL (4.0-11.0)
[2016-05-12 04:30] LABS: MANUAL DIFF YES
[2016-05-12 04:39] LABS: CALCIUM 8.9 mg/dL (8.5-10.1); CREATININE 2.5 mg/dL (0.6-1.3)
[2016-05-12 05:14] LABS: ABSOLUTE NEUTROPHILS 6.5 thou/uL (1.4-8.2); ANISOCYTOSIS 3+; MACROCYTES 1+; MICROCYTES 1+; POLYCHROMASIA OCCASIONAL; TOTAL CELL COUNT 100
[2016-05-12 18:52] LABS: ABG SAMPLE TYPE VENOUS; BE(vivo) 1.9 mmol/L (-2 to +3); HCO3 28.5 mmol/L (22.0-26.0); O2(CT) 4.7 mL/dL (15.0-23.0); PCO2 VENOUS 56.5 mmHg (41.0-51.0); PO2 VENOUS 23.8 mmHg (35.0-45.0); sO2 VENOUS 36.7 % (65.0-85.0); tCO2 30.3 mmol/L (24.0-30.0)
[2016-05-12 18:55] LABS: ABG COMMENT AC MODE; LACTATE 4.08 mmol/L (0.5-2.0); O2Hb VENOUS 38.1 (65.0-85.0); TIDAL VOLUME 450 ml
[2016-05-13] VITALS (46 sets, daily range): BP systolic 77–125; BP diastolic 43–90
[2016-05-13 04:19] LABS: HEMATOCRIT 24.4 % (37.0-47.0); HEMOGLOBIN 7.7 gm/dL (12.0-15.0); MCH 27.1 pg (26.0-34.0); MCHC 31.4 % (28.0-37.0); MCV 86.2 fL (80.0-100.0); RBC 2.83 mil/uL (4.20-5.00); WBC 11.6 thou/uL (4.0-11.0)
[2016-05-13 04:25] LABS: MANUAL DIFF YES; PLATELET COUNT 255 thou/uL (150-400)
[2016-05-13 04:35] LABS: ABG SAMPLE TYPE ARTERIAL; BE(vivo) 3.5 mmol/L (-2 to +3); HCO3 25.7 mmol/L (22.0-26.0); O2(CT) 11.9 mL/dL (15.0-23.0); O2Hb 97.6 % (92.0-98.0); PCO2 29.7 mmHg (35.0-45.0); PO2 116.3 mmHg (80.0-100.0); pH 7.555 (7.360-7.450); sO2 98.7 % (92.0-98.0); tCO2 26.6 mmol/L (24.0-30.0)
[2016-05-13 04:37] LABS: ABG COMMENT A/C MODE; LACTATE 3.65 mmol/L (0.5-2.0); STICK SITE L.BRACHIAL; TIDAL VOLUME 450 ml
[2016-05-13 05:16] LABS: ALBUMIN 2.3 g/dL (3.4-5.0); CALCIUM 9.1 mg/dL (8.5-10.1); MAGNESIUM 1.8 mg/dL (1.8-2.4); POTASSIUM 4.1 mmol/L (3.5-5.1); TOTAL BILIRUBIN 0.3 mg/dL (<0.1-1.0); TOTAL PROTEIN 5.5 g/dL (6.4-8.2)
[2016-05-13 05:20] LABS: CREATININE 3.5 mg/dL (0.6-1.3)
[2016-05-13 09:50] LABS: ABSOLUTE NEUTROPHILS 8.4 thou/uL (1.4-8.2); ANISOCYTOSIS 2+; MICROCYTES 2+; NUCLEATED RBCS 1 /100WBC; PLATELET ESTIMATE NORMAL; TOTAL CELL COUNT 100
[2016-05-13 14:48] LABS: STICK SITE LINE
[2016-05-14] VITALS (16 sets, daily range): BP systolic 96–148; BP diastolic 47–76
[2016-05-14 05:47] LABS: ABG SAMPLE TYPE ARTERIAL; BE(vivo) 1.8 mmol/L (-2 to +3); HCO3 26.4 mmol/L (22.0-26.0); O2(CT) 10.5 mL/dL (15.0-23.0); O2Hb 95.5 % (92.0-98.0); PCO2 41.1 mmHg (35.0-45.0); PO2 89.5 mmHg (80.0-100.0); pH 7.425 (7.360-7.450); tCO2 27.6 mmol/L (24.0-30.0)
[2016-05-14 05:48] LABS: STICK SITE R.RADIAL
[2016-05-14 07:05] LABS: HEMATOCRIT 23.9 % (37.0-47.0); HEMOGLOBIN 7.5 gm/dL (12.0-15.0); MCH 27.5 pg (26.0-34.0); MCHC 31.3 % (28.0-37.0); MCV 87.8 fL (80.0-100.0); PLATELET COUNT 210 thou/uL (150-400); RBC 2.72 mil/uL (4.20-5.00); RDW 17.9 % (10.5-14.5); WBC 7.5 thou/uL (4.0-11.0)
[2016-05-14 07:18] LABS: MANUAL DIFF YES
[2016-05-14 07:20] LABS: INR 1.1; PROTIME 11.1 Seconds (9.3-11.4)
[2016-05-14 07:24] LABS: CALCIUM 8.7 mg/dL (8.5-10.1); MAGNESIUM 1.9 mg/dL (1.8-2.4); POTASSIUM 4.4 mmol/L (3.5-5.1)
[2016-05-14 11:09] LABS: ABSOLUTE NEUTROPHILS 4.4 thou/uL (1.4-8.2); TOTAL CELL COUNT 100
[2016-05-14 11:10] LABS: ANISOCYTOSIS SLIGHT; HYPOCHROMASIA SLIGHT; MICROCYTES SLIGHT
[2016-05-15] VITALS (20 sets, daily range): BP systolic 97–144; BP diastolic 48–104
[2016-05-15 05:01] LABS: HEMATOCRIT 27.4 % (37.0-47.0); HEMOGLOBIN 8.6 gm/dL (12.0-15.0); MCH 27.9 pg (26.0-34.0); MCHC 31.2 % (28.0-37.0); MCV 89.4 fL (80.0-100.0); RBC 3.07 mil/uL (4.20-5.00); RDW 18.2 % (10.5-14.5); WBC 8.3 thou/uL (4.0-11.0)
[2016-05-16 03:48] VITALS: BP 137/60
[2016-05-16 05:50] LABS: ABSOLUTE NEUTROPHILS 6.2 thou/uL (1.4-8.2); BASOPHILS 0.5 % (0.0-2.0); EOSINOPHILS 1.8 % (0.0-3.0); HEMATOCRIT 24.5 % (37.0-47.0); HEMOGLOBIN 7.7 gm/dL (12.0-15.0); LYMPHOCYTES 15.6 % (24.0-44.0); MCH 27.8 pg (26.0-34.0); MCHC 31.3 % (28.0-37.0); MCV 88.9 fL (80.0-100.0); MONOCYTES 9.1 % (1.0-8.0); PLATELET COUNT 234 thou/uL (150-400); RBC 2.76 mil/uL (4.20-5.00); RDW 18.3 % (10.5-14.5); WBC 8.5 thou/uL (4.0-11.0)
[2016-05-16 05:59] LABS: MANUAL DIFF NO
[2016-05-16 06:03] LABS: CALCIUM 8.9 mg/dL (8.5-10.1); CREATININE 2.2 mg/dL (0.6-1.3); POTASSIUM 3.9 mmol/L (3.5-5.1)
[2016-05-16 08:51] VITALS: BP 148/66
[2016-05-16 12:08] VITALS: BP 112/49
[2016-05-16 12:14] LABS: % SATURATION 25 % (15-55); FERRITIN 534 ng/mL (15-150); FOLIC ACID > 19.9 ng/mL (>3.0); IRON 32 ug/dL (27-139); TIBC 129 ug/dL (250-450); UIBC 97 ug/dL (118-369)
[2016-05-16 17:05] VITALS: BP 136/58
[2016-05-16 19:35] VITALS: BP 120/63
[2016-05-17 03:52] VITALS: BP 137/90
[2016-05-17 06:43] LABS: ABSOLUTE NEUTROPHILS 6.2 thou/uL (1.4-8.2); BASOPHILS 0.4 % (0.0-2.0); EOSINOPHILS 2.1 % (0.0-3.0); HEMATOCRIT 26.1 % (37.0-47.0); HEMOGLOBIN 8.1 gm/dL (12.0-15.0); LYMPHOCYTES 19.6 % (24.0-44.0); MCH 27.3 pg (26.0-34.0); MCHC 30.9 % (28.0-37.0); MCV 88.6 fL (80.0-100.0); MONOCYTES 9.2 % (1.0-8.0); PLATELET COUNT 227 thou/uL (150-400); POLYS 68.7 % (36.0-66.0); RBC 2.95 mil/uL (4.20-5.00); RDW 18.4 % (10.5-14.5)
[2016-05-17 06:45] LABS: MANUAL DIFF NO
[2016-05-17 07:01] LABS: ALBUMIN 2.7 g/dL (3.4-5.0); PHOSPHORUS 2.7 mg/dL (2.5-4.9); POTASSIUM 4.4 mmol/L (3.5-5.1)
[2016-05-17 07:11] LABS: CREATININE 3.2 mg/dL (0.6-1.3)
[2016-05-17] MEDS ORDERED: GUAIFENESIN/COD10 M1 PER TUBE (12:23)
[2016-05-17] MEDS ORDERED: HEPARIN SO5000 UNIT/ SUBQ (12:23)
[2016-05-17] MEDS ORDERED: PROTONIX40 M4 PO (12:34)
== END 2016-05-17 14:00 | DRG 208 ==
LOC: ER 11:03 → ICU 12:53 → EROBS 12:53 → 4S 12:53 → ICU 05-10 18:56 → 4W 05-11 12:22 → ICU 05-12 17:53 → 4S 05-15 17:51
PROVIDERS: Emergency Medicine; Family Medicine; Hospitalist; Internal Medicine; Internal Medicine Endocrinology, Diabetes & Metabolism; Internal Medicine Gastroenterology; Internal Medicine Nephrology; Internal Medicine Pulmonary Disease; Nurse Practitioner Adult Health
PROC: 0W9B3ZZ Drainage of Left Pleural Cavity, Percutaneous Approach (ICD-10-PCS; principal; 2016-05-04)
PROC: 5A1935Z Respiratory Ventilation, Less than 24 Consecutive Hours (ICD-10-PCS; 2016-05-12)
PROC: 0BJ08ZZ Inspection of Tracheobronchial Tree, Via Natural or Artificial Opening Endoscopic (ICD-10-PCS; 2016-05-15)
PROC: 5A1D60Z (ICD-10-PCS; 2016-05-17)
DX: J15.6 Pneumonia due to other Gram-negative bacteria (principal); N18.6 End stage renal disease; J96.00 Acute respiratory failure, unspecified whether with hypoxia or hypercapnia; J90 Pleural effusion, not elsewhere classified; E46 Unspecified protein-calorie malnutrition; Z94.0 Kidney transplant status; G47.33 Obstructive sleep apnea (adult) (pediatric); L89.152 Pressure ulcer of sacral region, stage 2; I48.0 Paroxysmal atrial fibrillation; J44.9 Chronic obstructive pulmonary disease, unspecified; F32.9 Major depressive disorder, single episode, unspecified; D64.9 Anemia, unspecified; L89.892 Pressure ulcer of other site, stage 2; L89.302 Pressure ulcer of unspecified buttock, stage 2; R13.10 Dysphagia, unspecified; E83.39 Other disorders of phosphorus metabolism; R19.7 Diarrhea, unspecified; I48.91 Unspecified atrial fibrillation; E11.22 Type 2 diabetes mellitus with diabetic chronic kidney disease; Z99.2 Dependence on renal dialysis; Z86.718 Personal history of other venous thrombosis and embolism; Z93.0 Tracheostomy status; Z93.1 Gastrostomy status; Z86.711 Personal history of pulmonary embolism; Z79.82 Long term (current) use of aspirin; Z79.2 Long term (current) use of antibiotics; Z68.26 Body mass index [BMI] 26.0-26.9, adult; Z79.899 Other long term (current) drug therapy; Z28.21 Immunization not carried out because of patient refusal
CPT/HCPCS: 10045; 10078; 10100; 32100